=== PATIENT | female | born 1985 | race African-American/Black ===

== ENCOUNTER 2018-12-22 11:40 | Emergency (ER) | payer OTHER ==
[~2018-12-22] VITALS: Ht 160 cm; Wt 97.5 kg
[2018-12-22 12:34] LABS: URINE BILIRUBIN NEGATIVE (Negative); URINE BLOOD NEGATIVE (Negative); URINE CLARITY CLEAR; URINE COLOR YELLOW; URINE GLUCOSE-RANDOM* NEGATIVE (Negative); URINE KETONES NEGATIVE (Negative); URINE LEUKOCYTES-REFLEX NEGATIVE (Negative); URINE NITRITE-REFLEX NEGATIVE (Negative); URINE PROTEIN (DIPSTICK) NEGATIVE (Negative); URINE SPECIFIC GRAVITY 1.025 (1.005-1.035); URINE UROBILINOGEN 0.2 E.U./dl (0.2-1.0)
[2018-12-22 13:38] LABS: ABSOLUTE NEUTROPHILS 3.5 thou/uL (1.4-8.2); BASOPHILS 0.8 % (0.0-2.0); EOSINOPHILS 1.5 % (0.0-3.0); HEMATOCRIT 39.8 % (37.0-47.0); HEMOGLOBIN 13.3 gm/dL (12.0-15.0); LYMPHOCYTES 37.5 % (24.0-44.0); MCH 28.6 pg (26.0-34.0); MCHC 33.4 g/dL (28.0-37.0); MCV 85.9 fL (80.0-100.0); MONOCYTES 6.4 % (1.0-8.0); PLATELET COUNT 332 thou/uL (150-400); POLYS 53.8 % (36.0-66.0); RBC 4.63 mil/uL (4.20-5.00); RDW 13.9 % (10.5-14.5); WBC 6.5 thou/uL (4.0-11.0)
[2018-12-22 13:48] LABS: CALCIUM 9.1 mg/dL (8.5-10.1); CREATININE 0.9 mg/dL (0.6-1.0); POTASSIUM 4.1 mmol/L (3.5-5.1)
[2018-12-22 13:54] LABS: ALBUMIN 3.7 g/dL (3.4-5.0); MAGNESIUM 2.1 mg/dL (1.8-2.4); TOTAL BILIRUBIN 0.5 mg/dL (<0.1-1.0)
[2018-12-22 14:35] VITALS: BP 126/74
--- NOTE | 2018-12-23 09:08 | EKG ---
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: Jameson KIRBY RN : 1985 Requested By: Jazmín Elias Order Number: [id number] MD: Francesco Perera Measurements Intervals [place] Rate: 74 P: 42 [place]: 203 QRS: 22 QRSD: 87 T: 34 QT: 392 QTc: 435 Interpretive Statements Sinus rhythm Early R-wave progression No previous ECG available for comparison Electronically Signed On 12-23-2018 9:08:40 CDT by Francesco Perera [email or web address] ��������������������������������������������� <ELECTRONICALLY SIGNED> ���������������������������������������� By: Francesco Perera MD, [facility] ��������������������������������������������� 12/23/18 0908 1233 1233 Francesco Perera MD, FACC /EPI
== END 2018-12-22 14:51 | disposition home or self-care (01) ==
LOC: ER 11:40
PROVIDERS: Physician Assistant
DX: R20.2 Paresthesia of skin (principal); F41.9 Anxiety disorder, unspecified

== ENCOUNTER 2019-05-26 20:13 | Emergency (ER) | payer OTHER ==
[~2019-05-26] VITALS: Ht 160 cm; Wt 95.3 kg
[2019-05-26 20:47] LABS: HEMATOCRIT 40.5 % (37.0-47.0); HEMOGLOBIN 13.3 gm/dL (12.0-15.0); MCH 28.6 pg (26.0-34.0); MCHC 32.8 g/dL (28.0-37.0); MCV 87.2 fL (80.0-100.0); PLATELET COUNT 351 thou/uL (150-400); RBC 4.65 mil/uL (4.20-5.00); RDW 14.2 % (10.5-14.5)
[2019-05-26 20:56] LABS: ANION GAP 8 mmol/L (7-16); BUN 14 mg/dL (7-18); CALCIUM 9.7 mg/dL (8.5-10.1); CHLORIDE 103 mmol/L (98-107); CO2 26 mmol/L (21-32); GLUCOSE 103 mg/dL (74-106); POTASSIUM 3.9 mmol/L (3.5-5.1); SODIUM 137 mmol/L (136-145)
[2019-05-26 21:07] LABS: ALBUMIN 3.6 g/dL (3.4-5.0); SGOT 55 U/L (15-37); SGPT 68 U/L (30-65); TOTAL BILIRUBIN 0.7 mg/dL (<0.1-1.0); TOTAL PROTEIN 7.5 g/dL (6.4-8.2); TROPONIN-I <0.06 ng/mL (<0.06)
[2019-05-26 21:46] LABS: ABSOLUTE NEUTROPHILS 4.2 thou/uL (1.4-8.2); ANISOCYTOSIS 1+; POLYCHROMASIA OCCASIONAL
[2019-05-26] MEDS ORDERED: NEURONTIN100 MG PO (22:55)
[2019-05-26] MEDS ORDERED: GILENYA0.5 MG PO (22:56)
[2019-05-26 23:09] VITALS: BP 131/86
--- NOTE | 2019-05-28 16:48 | EKG ---
[address] [address] [place] [address] ELECTROCARDIOGRAM REPORT Name: JUANCARLOS JORGE [id number] Admission: 05/26/19 Attend Phys: Discharge: 05/26/19 Date of : 85 Report #: [id number] THIS REPORT FOR: //name// [facility] ED Test Date: 2019-05-26 Test Time: 20:24:15 Pat Name: JUANCARLOS JORGE Department: Room: Gender: F Compensation Supervisor: TAHMINA : 1985 Requested By: Sameer Scott Order Number: [id number] MD: Francesco Perera Measurements Intervals [place] Rate: 76 P: 34 [place]: 207 QRS: 10 QRSD: 80 T: 34 QT: 400 QTc: 450 Interpretive Statements Sinus rhythm First-degree AV block Early R-wave progression Compared to ECG 12/22/2018 12:33:54 No significant changes Electronically Signed On 05-28-2019 16:48:25 [employer] PROFESSOR by Francesco Perera [email or web address] <ELECTRONICALLY SIGNED> By: Francesco Perera MD, MERGED WITH [facility] 05/28/19 1648 23 23 Francesco Perera MD, FACC /EPI
== END 2019-05-26 23:14 | disposition home or self-care (01) ==
LOC: ER 20:13
PROVIDERS: Emergency Medicine
DX: J02.9 Acute pharyngitis, unspecified (principal); G35 Multiple sclerosis